=== PATIENT | female | born 1945 | race Caucasian/White ===

== ENCOUNTER 2021-02-16 05:56 | Inpatient (IN) ==
[~2021-02-16 05:56] MED LIST: CLINDAMYCIN INJ 900 MG/50 ML PREMIX IV ONE; VANCOMYCIN 1,000 MG VIAL ONE
[2021-02-16] MEDS ORDERED: GABAPENTIN 400 MG CAPSULE PO ONE (06:05)
[2021-02-16] MEDS ORDERED: FAMOTIDINE 20 MG TABLET PO ONE (06:05)
[2021-02-16] MEDS ORDERED: ACETAMINOPHEN 500 MG TABLET PO ONE (06:05)
[2021-02-16] MEDS ORDERED: DEXMEDETOMIDINE 200 MCG/2 ML VIAL ONE ×2 (06:29→06:33)
[2021-02-16] MEDS ORDERED: KETAMINE 500 MG/10 ML VIAL ONE (06:30)
[2021-02-16] MEDS ORDERED: BUPIVACAINE SPINAL 0.75% 2 ML AMP SPINAL ONE (06:31)
[2021-02-16] MEDS: LACTATED RINGERS 1,000 ML IV SCH ×3 (06:34→17:39)
[2021-02-16] MEDS ORDERED: VANCOMYCIN INJ 1,000 MG in SODIUM CHLORIDE 0.9% 250 ML IV ONE (06:35)
[2021-02-16] MEDS ORDERED: ROPIVACAINE 0.5% 30 ML VIAL ONE (06:35)
[2021-02-16] MEDS ORDERED: BACITRACIN OINT 0.9 GM PACK TOP ONE (06:37)
[2021-02-16] MEDS ORDERED: MORPHINE 4 MG/1 ML VIAL IV PRN ×2 (07:27)
[2021-02-16] MEDS ORDERED: MAGNESIUM HYDROXIDE SUSP 30 ML UDCUP PO PRN (07:27)
[2021-02-16] MEDS ORDERED: diphenhydrAMINE CAP 25 MG CAPSULE PO PRN (07:27)
[2021-02-16] MEDS ORDERED: ONDANSETRON 4 MG/2 ML VIAL ONE (07:44)
[2021-02-16] MEDS ORDERED: DEXAMETHASONE 4 MG/1 ML VIAL ONE (07:44)
[2021-02-16] MEDS ORDERED: TRANEXAMIC ACID 1,000 MG/10 ML VIAL ONE (07:55)
[2021-02-16] MEDS ORDERED: LIDOCAINE 1% 5 ML VIAL ONE (09:04)
[2021-02-16] MEDS ORDERED: LACTATED RINGERS 1,000 ML IV ONE (10:22)
[2021-02-16] MEDS: KETOROLAC 15 MG/1 ML VIAL IV SCH ×3 (13:24→20:54)
[2021-02-16] MEDS: CLINDAMYCIN INJ 900 MG/50 ML PREMIX IV SCH ×2 (14:59→22:17)
[2021-02-16] MEDS: DOCUSATE SODIUM 100 MG CAPSULE PO SCH ×2 (18:25→20:53)
[2021-02-16] MEDS: CETIRIZINE 5 MG TABLET PO SCH (18:26)
[2021-02-16] MEDS: APIXABAN 2.5 MG TABLET PO SCH (20:53)
[2021-02-16] MEDS: ONDANSETRON 4 MG/2 ML VIAL IV PRN (20:53)
[2021-02-16] MEDS: OXYBUTYNIN XL 5 MG TABLET PO SCH (20:53)
[2021-02-16] MEDS ORDERED: SIMVASTATIN 20 MG TABLET PO SCH (21:00)
[2021-02-16] MEDS: SERTRALINE 100 MG TABLET PO SCH (21:01)
[2021-02-16] MEDS: ZALEPLON 5 MG CAPSULE PO PRN (21:02)
[2021-02-17] MEDS: KETOROLAC 15 MG/1 ML VIAL IV SCH (02:27)
[2021-02-17] MEDS: LACTATED RINGERS 1,000 ML IV SCH ×2 (03:24→03:56)
[2021-02-17 05:18] LABS: Basophils % 0.2 % (0.0-0.8); Hematocrit 31.2 VOL% (35.7-47.0); Hemoglobin 10.2 GM/DL (12.0-16.0); Immature Granulocytes % 0.2 %; Immature Granulocytes Absolute 0.02 #; Lymphocytes # 0.6 10*3/uL (1.4-4.0); Lymphocytes % 6.8 % (21.3-54.2); Mean Corpuscular HGB Conc 32.7 GM/DL (32-36); Mean Platelet Volume 12.2 FL (9.6-12.0); Monocytes % 8.9 % (1.7-12.7); Neutrophils % 83.9 % (38.7-73.9); Platelet Count 165 T/CUMM (130-400); Red Blood Count 3.63 MC/CUMM (3.8-5.5); Red Cell Distribution Width 13.1 % (9.3-17.3); White Blood Count 9.2 T/CUMM (4-12)
[2021-02-17 05:33] LABS: Calcium 7.8 MG/DL (8.5-10.1); Osmolality,Calculated 284.3 MOS/KG (273-304); Potassium 4.1 MMOL/L (3.5-5.1)
[2021-02-17] MEDS: CLINDAMYCIN INJ 900 MG/50 ML PREMIX IV SCH (07:10)
[2021-02-17] MEDS: CETIRIZINE 5 MG TABLET PO SCH (08:48)
[2021-02-17] MEDS: APIXABAN 2.5 MG TABLET PO SCH ×2 (08:48→20:18)
[2021-02-17] MEDS: LOSARTAN 50 MG TABLET PO SCH (08:48)
[2021-02-17] MEDS: DOCUSATE SODIUM 100 MG CAPSULE PO SCH ×2 (08:48→20:18)
[2021-02-17] MEDS: ONDANSETRON 4 MG/2 ML VIAL IV PRN (10:38)
[2021-02-17] MEDS: ZALEPLON 5 MG CAPSULE PO PRN (20:18)
[2021-02-17] MEDS: OXYBUTYNIN XL 5 MG TABLET PO SCH (20:18)
[2021-02-17] MEDS: SERTRALINE 100 MG TABLET PO SCH ×2 (20:18→21:17)
[2021-02-17] MEDS ORDERED: SIMVASTATIN 20 MG TABLET PO SCH (21:00)
[2021-02-17] MEDS: SIMVASTATIN 20 MG TABLET PO SCH ×2 (21:17→21:18)
[2021-02-18 04:55] LABS: Basophils % 0.3 % (0.0-0.8); Eosinophils # 0.1 10*3/uL (0.0-0.87); Eosinophils % 0.8 % (0.00-10.9); Hematocrit 29.8 VOL% (35.7-47.0); Hemoglobin 10.1 GM/DL (12.0-16.0); Immature Granulocytes % 1.4 %; Immature Granulocytes Absolute 0.11 #; Lymphocytes # 0.7 10*3/uL (1.4-4.0); Lymphocytes % 9.1 % (21.3-54.2); Mean Corpuscular HGB Conc 33.9 GM/DL (32-36); Mean Corpuscular Volume 85.9 FL (87-102); Mean Platelet Volume 12.3 FL (9.6-12.0); Monocytes % 8.5 % (1.7-12.7); Neutrophils % 79.9 % (38.7-73.9); Platelet Count 144 T/CUMM (130-400); Red Blood Count 3.47 MC/CUMM (3.8-5.5); Red Cell Distribution Width 13.3 % (9.3-17.3); White Blood Count 7.9 T/CUMM (4-12)
[2021-02-18] MEDS ORDERED: SERTRALINE 100 MG TABLET PO SCH (09:00)
[2021-02-18] MEDS: LOSARTAN 50 MG TABLET PO SCH (09:07)
[2021-02-18] MEDS: CETIRIZINE 5 MG TABLET PO SCH (09:08)
[2021-02-18] MEDS: DOCUSATE SODIUM 100 MG CAPSULE PO SCH (09:08)
[2021-02-18] MEDS: APIXABAN 2.5 MG TABLET PO SCH (09:08)
[2021-02-18 11:27] VITALS: BP 142/65
== END 2021-02-18 11:15 | disposition home health service (06) | DRG 470 ==
LOC: N.OR 05:56 → N.SDSINP 05:59 → N.3E 17:43
PROVIDERS: ADMIT Orthopaedic Surgery; ATTEND Orthopaedic Surgery